=== PATIENT | male | born 2000 | race Two or more races ===

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

== ENCOUNTER 2022-12-12 10:50 | Emergency (ER) | payer SELFPAY ==
[2022-12-12] MEDS ORDERED: Ketorolac 30 MG/ML SDV IM ONE (11:31)
[2022-12-12 11:41] LABS: CORONAVIRUS COVID-19 NAA NEGATIVE (NEGATIVE); INFLUENZA A NAA NEGATIVE (NEGATIVE); INFLUENZA B NAA NEGATIVE (NEGATIVE); RESPIRATORY SYNCYTIAL VIR NAA NEGATIVE (NEGATIVE)
[2022-12-12 12:11] VITALS: BP 100/62; PULSE 82
== END 2022-12-12 12:52 | disposition home or self-care (01) ==
LOC: MW.ED 10:50
DX: M94.0 Chondrocostal junction syndrome [Tietze] (principal); Z79.899 Other long term (current) drug therapy; Z20.822 Contact with and (suspected) exposure to COVID-19
CPT/HCPCS: 0241U; 71046; 96372; 99285; J1885; 99283